=== PATIENT | male | born 1970 | race Caucasian/White ===

== ENCOUNTER 2019-04-19 14:02 | Emergency (ER) | payer OTHER ==
--- NOTE | 2019-04-19 15:27 | ER Document Report ---
ED Medical Screen (RME) - General Chief Complaint: Fall Injury Stated Complaint: BACK PAIN Time Seen by Provider: 04/19/19 14:48 Mode of Arrival: Wheelchair Information source: Patient Notes: 49-year-old male presented to ED for complaint of right back and flank pain after he was getting out of his big truck when his shorts caught on a hook throwing him onto the ground landing on his buttocks and right back. He now has tenderness to palpation to the right mid to lower back and flank. Patient states he felt like he might have had a bowel movement earlier on himself but is not sure because he has not been to the bathroom since then. He states it is very painful and it is hard to walk due to the pain. He states he has a history of a gallbladder removal and bilateral inguinal hernias. He does not smoke drink or do any drugs. He is alert oriented respirations regular and unlabored speaking in full sentences. I have greeted and performed a rapid initial assessment of this patient. A comprehensive ED assessment and evaluation of the patient, analysis of test results and completion of medical decision making process will be conducted by an additional ED providers. Dictation of this chart was performed using voice recognition software; therefore, there may be some unintended grammatical errors. TRAVEL OUTSIDE OF THE [place] IN LAST 30 DAYS: No - Related Data Allergies/Adverse Reactions: No Known Allergies Allergy (Unverified 04/19/19 14:03) Past Medical History Renal/ Medical History: Denies: Hx Peritoneal Dialysis Past Surgical History: Reports: Hx Cholecystectomy Physical Exam - Vital signs Vitals: Temp Pulse Resp BP Pulse Ox 97.9 F 82 16 111/71 96 04/19/19 14:56 04/19/19 14:56 04/19/19 14:56 04/19/19 14:56 04/19/19 14:56 Course - Vital Signs Vital signs: Temp Pulse Resp BP Pulse Ox 97.9 F 82 16 111/71 96 04/19/19 14:56 04/19/19 14:56 04/19/19 14:56 04/19/19 14:56 04/19/19 14:56
[2019-04-19 15:55] LABS: ABSOLUTE EOSINOPHILS # (AUTO) 0.1 10^3/uL (0.0-0.6); ABSOLUTE LYMPHOCYTES (AUTO) 0.6 10^3/uL (0.5-4.7); ABSOLUTE MONOCYTES (AUTO) 0.3 10^3/uL (0.1-1.4); ABSOLUTE NEUT (AUTO) 4.4 10^3/uL (1.7-8.2); BASOPHILS % (AUTO) 0.7 % (0-2); EOSINOPHILS % (AUTO) 1.3 % (0-6); HEMATOCRIT 38.9 % (37.9-51.0); HEMOGLOBIN 13.3 g/dL (13.5-17.0); LYMPHOCYTES % (AUTO) 11.8 % (13-45); MEAN CORPUSCULAR HEMOGLOBIN 28.7 pg (27.0-33.4); MEAN CORPUSCULAR HGB CONC 34.2 g/dL (32.0-36.0); MEAN CORPUSCULAR VOLUME 84 fl (80-97); PLATELET COUNT 270 10^3/uL (150-450); RED BLOOD COUNT 4.64 10^6/uL (4.35-5.55); RED CELL DISTRIBUTION WIDTH 13.7 % (11.5-14.0); SEGMENTED NEUTROPHILS % (AUTO) 80.2 % (42-78); TOTAL CELLS COUNTED % (AUTO) 100 %; WHITE BLOOD COUNT 5.5 10^3/uL (4.0-10.5)
[2019-04-19 16:13] LABS: ALANINE AMINOTRANSFERASE 40 U/L (21-72); ALBUMIN 4.3 g/dL (3.5-5.0); ALKALINE PHOSPHATASE 57 U/L (38-126); ANION GAP 8 (5-19); ASPARTATE AMINO TRANSFERASE 41 U/L (17-59); BILIRUBIN,DIRECT 0.2 mg/dL (0.0-0.4); BILIRUBIN,TOTAL 0.4 mg/dL (0.2-1.3); BLOOD UREA NITROGEN 15 mg/dL (7-20); CALCIUM 9.5 mg/dL (8.4-10.2); CARBON DIOXIDE 30 mmol/L (22-30); CHLORIDE 102 mmol/L (98-107); GLUCOSE 164 mg/dL (75-110); POTASSIUM 3.3 mmol/L (3.6-5.0); TOTAL PROTEIN 6.9 g/dL (6.3-8.2)
--- NOTE | 2019-04-19 16:34 | RADIOLOGY REPORT (SQ) ---
EXAM DESCRIPTION: CT ABD/PELVIS NO ORAL OR IV COMPLETED DATE/TIME: 04/19/2019 4:14 pm REASON FOR STUDY: right flank and low back pain after fall out of tr COMPARISON: None. TECHNIQUE: CT scan of the abdomen and pelvis performed without intravenous or oral contrast. Images reviewed with lung, soft tissue, and bone windows. Reconstructed coronal and sagittal MPR images revi ewed. All images stored on PACS. All CT scanners at this facility use dose modulation, iterative reconstruction, and/or weight based d osing when appropriate to reduce radiation dose to as low as reasonably achievable (ALARA). [facility]: Dose Right [facility]: CareDose [facility]: Dose Right [facility]: Teradose 4D [facility]: Smart Div[employer] RADIATION DOSE: CT Rad equipment meets quality standard of care and radiation dose reduction techniq ues were employed. CTDIvol: 5.1 mGy. DLP: 278 mGy-cm.mGy. LIMITATIONS: None. FINDINGS: LOWER CHEST: No significant findings. No nodules or infiltrates. NON-CONTRASTED LIVER, SPLEEN, ADRENALS: Evaluation limited by lack of IV contrast. No identified sign ificant masses. PANCREAS: No masses. No peripancreatic inflammatory changes. GALLBLADDER: Surgically absent. RIGHT KIDNEY AND URETER: Small upper pole cyst identified. No solid masses. No calcified stones. No h ydronephrosis or hydroureter. LEFT KIDNEY AND URETER: No cysts identified. No solid masses. Small lower pole calcified stones. No hydronephrosis or hydroureter. AORTA AND RETROPERITONEUM: No aneurysm. No retroperitoneal masses or adenopathy. BOWEL AND PERITONEAL CAVITY: No obvious masses or inflammatory changes. No free fluid. APPENDIX: Normal. PELVIS, BLADDER, AND ABDOMINAL WALL:No abnormal masses. No free fluid. Unremarkable bladder. BONES: Mild anterior compression fracture of the T11 vertebral body. Moderate degenerative disc dise ase at the L5-S1 level. There are bridging osteophytes at the SI joints. OTHER: No other significant finding. IMPRESSION: Mild anterior compression fracture of the T11 vertebral body. No other acute findings. TECHNICAL DOCUMENTATION: JOB ID: [id number] [place]-[id number] Quality ID # [id number]: Final reports with documentation of one or more dose reduction techniques (e.g., Au tomated exposure control, adjustment of the mA and/or kV according to patient size, use of iterative reconstruction technique) 2010 [employer]- All Rights Reserved Reading location - IP/workstation name: [facility] [employer]
[2019-04-19 18:16] LABS: APPEARANCE,URINE SLIGHTLY-CLOUDY; BILIRUBIN,URINE NEGATIVE (NEGATIVE); COLOR,URINE AMBER; GLUCOSE, URINE >=500 mg/dL (NEGATIVE); KETONES,URINE NEGATIVE (NEGATIVE); LEUKOCYTE ESTERASE,URINE NEGATIVE (NEGATIVE); NITRITE,URINE NEGATIVE (NEGATIVE); PROTEIN,URINE 30 mg/dL (NEGATIVE); URINE SPECIFIC GRAVITY 1.023
[2019-04-19] MEDS ORDERED: OXYCODONE-ACETAMINOPHEN 5-325 MG TABLET PO ONE (18:23)
[2019-04-19] MEDS ORDERED: CYCLOBENZAPRINE HCL 10 MG TABLET PO ONE (18:23)
[2019-04-19] MEDS ORDERED: ONDANSETRON 4 MG TAB.RAPDIS PO ONE (18:33)
--- NOTE | 2019-04-19 18:52 | RADIOLOGY REPORT (SQ) ---
EXAM DESCRIPTION: HAND LEFT 3 VIEWS COMPLETED DATE/TIME: 04/19/2019 6:43 pm REASON FOR STUDY: hand pain and bruising COMPARISON: None. EXAM PARAMETERS: NUMBER OF VIEWS: Three views. TECHNIQUE: AP, lateral and oblique radiographic images acquired of the left hand. LIMITATIONS: None. FINDINGS: MINERALIZATION: Normal. BONES: No acute fracture or dislocation. No worrisome bone lesions. JOINTS: No effusions. SOFT TISSUES: No soft tissue swelling. No foreign body. OTHER: No other significant finding. IMPRESSION: NEGATIVE STUDY OF THE LEFT HAND. NO RADIOGRAPHIC EVIDENCE OF ACUTE INJURY. TECHNICAL DOCUMENTATION: JOB ID: [id number] [employer]- All Rights Reserved Reading location - IP/workstation name: [email or web address]
[2019-04-19] MEDS ORDERED: KETOROLAC TROMETHAMINE 60 MG/2 ML SDV IM ONE (19:52)
--- NOTE | 2019-04-19 19:59 | ER Document Report ---
ED General - General Chief Complaint: Fall Injury Stated Complaint: BACK PAIN Time Seen by Provider: 04/19/19 14:48 Mode of Arrival: Wheelchair TRAVEL OUTSIDE OF THE [place] IN LAST 30 DAYS: No - HPI Notes: 49-year-old male to the emergency department with complaints of low back pain, left hand pain, headache, loss of consciousness after falling off of a loading deck. He states that a truck cut back up into the loading deck and he was trying to get down off of the loading dock and got hung up on a piece of wire that was hooked. He states that that threw him onto the ground about 5 feet where he landed directly onto his back and hit his head. He states that he had brief loss of consciousness. He states that he has pain particularly in the back ever since. Most of his pain is in the mid back. He denies any bladder incontinence, urinary retention, saddle paresthesias, radiculopathy down the leg, inability to walk, nausea, vomiting, blurry vision, hypersomnolence. - Related Data Allergies/Adverse Reactions: No Known Allergies Allergy (Unverified 04/19/19 14:03) Past Medical History - General Information source: Patient - Social History Smoking Status: Current Every Day Smoker Frequency of alcohol use: None Drug Abuse: None Family History: Reviewed & Not Pertinent Patient has suicidal ideation: No Patient has homicidal ideation: No Renal/ Medical History: Denies: Hx Peritoneal Dialysis Past Surgical History: Reports: Hx Cholecystectomy Review of Systems - Review of Systems Constitutional: denies: Chills, Fever EENT: No symptoms reported Cardiovascular: denies: Chest pain, Dyspnea, Syncope, Dizziness, Lightheaded Respiratory: denies: Cough, Short of breath Gastrointestinal: denies: Abdominal pain, Diarrhea, Nausea, Vomiting Genitourinary: denies: Dysuria, Discharge, Frequency, Flank pain, Hematuria, Incontinence Musculoskeletal: Back pain, Muscle pain Skin: No symptoms reported Hematologic/Lymphatic: No symptoms reported Neurological/Psychological: No symptoms reported -: Yes All other systems reviewed and negative Physical Exam - Vital signs Vitals: Temp Pulse Resp BP Pulse Ox 97.9 F 82 16 111/71 96 04/19/19 14:56 04/19/19 14:56 04/19/19 14:56 04/19/19 14:56 04/19/19 14:56 Interpretation: Normal - General General appearance: Alert In distress: Moderate - moderate pain distress. patient standing in the room and states that standing makes his back feel better. - HEENT Head: Normocephalic, Atraumatic Eyes: Normal Pupils: PERRL - Respiratory Respiratory status: No respiratory distress Chest status: Nontender Breath sounds: Normal Chest palpation: Normal - Cardiovascular Rhythm: Regular Heart sounds: Normal auscultation Murmur: No - Abdominal Inspection: Normal Distension: No distension Bowel sounds: Normal Tenderness: Nontender Organomegaly: No organomegaly - Back Back: Tender, Vertebra tenderness - there is TTP over the midline thoracic vertebra and the upper midline lumbar vertebra. there is no step off or deformity. there is no SLR bilaterally. there is no evidence of wound, crepitus, ecchymosis to the back - Extremities General upper extremity: Normal inspection, Nontender, Normal strength, Normal temperature General lower extremity: Normal inspection, Nontender, Normal strength, Normal temperature Hand: Tender, Ecchymosis - there is mild TTP over the left palm and thumb with noted ecchymosis. no gross deformity. patient has 5/5 hand communications professional biltaerally. no snuff box tenderness. radial pulses intact and equal. cap refill is less than 2 sec - Neurological Neuro grossly intact: Yes Cognition: Normal Orientation: AAOx4 [place] Coma Scale Eye Opening: Spontaneous [place] Coma Scale Verbal: Oriented [place] Coma Scale Motor: Obeys Commands [place] Coma Scale Total: 15 Speech: Normal Cranial nerves: Normal Cerebellar coordination: No: Gait ataxia Motor strength normal: LUE, RUE, LLE, RLE Additional motor exam normals: Equal communications professional. No: Pronator drift Sensory: Normal - Psychological Associated symptoms: Normal affect, Normal mood - Skin Skin Temperature: Warm Skin Moisture: Dry Skin Color: Normal Course - Re-evaluation Re-evalutation: Impression: Fall, T11 vertebral compression fracture, left hand contusion and back strain. Patient is feeling much better after pain meds here and can get much more comfortable. He lives in [place] and would like information for spine follow up there. Will send home with pain meds, muscle relaxants. I have urged to return to nearest ER if any urinary retention, bladder/bowel incontinence, saddle paresthesias, radiculopathy, fevers, chills, or any other concerning symptoms. I have taken patient out of work until cleared by spine. Patient agrees with the plan. Abdomen/Pelvis CT 04/19/19 15:28 IMPRESSION: Mild anterior compression fracture of the T11 vertebral body. No other acute findings. Hand X-Ray 04/19/19 18:23 IMPRESSION: NEGATIVE STUDY OF THE LEFT HAND. NO RADIOGRAPHIC EVIDENCE OF ACUTE INJURY. Laboratory 04/19/19 04/19/19 04/19/19 15:35 15:35 15:35 WBC 5.5 RBC 4.64 Hgb 13.3 L Hct 38.9 MCV 84 MCH 28.7 MCHC 34.2 RDW 13.7 Plt Count 270 Seg Neutrophils % 80.2 H Lymphocytes % 11.8 L Monocytes % 6.0 Eosinophils % 1.3 Basophils % 0.7 Absolute Neutrophils 4.4 Absolute Lymphocytes 0.6 Absolute Monocytes 0.3 Absolute Eosinophils 0.1 Absolute Basophils 0.0 Sodium 139.5 Potassium 3.3 L Chloride 102 Carbon Dioxide 30 Anion Gap 8 BUN 15 Creatinine 0.82 Est GFR ( Amer) > 60 Est GFR (Non-Af Amer) > 60 Glucose 164 H Calcium 9.5 Total Bilirubin 0.4 Direct Bilirubin 0.2 Neonat Total Bilirubin Not Reportable Neonat Direct Bilirubin Not Reportable Neonat Indirect Bili Not Reportable AST 41 ALT 40 Alkaline Phosphatase 57 Total Protein 6.9 Albumin 4.3 Urine Color ESTER Urine Appearance SLIGHTLY-CLOUDY Urine pH 5.0 Ur Specific [place] 1.023 Urine Protein 30 H Urine Glucose (UA) >=500 H Urine Ketones NEGATIVE Urine Blood NEGATIVE Urine Nitrite NEGATIVE Urine Bilirubin NEGATIVE Urine Urobilinogen 2.0 H Ur Leukocyte Esterase NEGATIVE Urine WBC (Auto) 6 Urine RBC (Auto) 3 Urine Bacteria (Auto) TRACE Urine Mucus (Auto) OCC Urine Ascorbic Acid NEGATIVE - Vital Signs Vital signs: Temp Pulse Resp BP Pulse Ox 97.2 F 67 16 109/72 97 04/19/19 20:01 04/19/19 20:01 04/19/19 14:56 04/19/19 20:01 04/19/19 20:01 - Laboratory Result Diagrams: 04/19/19 15:35 04/19/19 15:35 Laboratory results interpreted by me: 04/19/19 04/19/19 04/19/19 15:35 15:35 15:35 Hgb 13.3 L Seg Neutrophils % 80.2 H Lymphocytes % 11.8 L Potassium 3.3 L Glucose 164 H Urine Protein 30 H Urine Glucose (UA) >=500 H Urine Urobilinogen 2.0 H - Diagnostic Test Radiology reviewed: Image reviewed, Reports reviewed Discharge - Discharge Clinical Impression: Strain of thoracic back region Fall Qualifiers: Encounter type: initial encounter Qualified Code(s): W19.XXXA - Unspecified fall, initial encounter Compression fracture of T11 vertebra Qualifiers: Encounter type: initial encounter Qualified Code(s): S22.080A - Wedge compression fracture of T11-T12 vertebra, initial encounter for closed fracture Contusion of left hand Qualifiers: Encounter type: initial encounter Qualified Code(s): S60.222A - Contusion of left hand, initial encounter Condition: Stable Disposition: HOME, SELF-CARE Instructions: Compression Fracture of the Spine ([facility]), Contusion ([facility]) Additional Instructions: APPLY ICE THREE TIMES A DAY FOR 20 MINUTES AT A TIME. TAKE PAIN MEDICINE AND MUSCLE RELAXANTS. NO LIFTING GREATER THAN 10 LBS UNTIL CLEARED BY [facility]. FOLLOW UP WITH [facility] IN [place] LISTED BELOW -- CALL TOMORROW FOR APPOINTMENT. RETURN IF ANY WORSENING SYMPTOMS. PUSH FLUIDS. [facility] [phone] [place] [address] Prescriptions: Cyclobenzaprine HCl [Flexeril 10 mg Tablet] 10 mg PO TID #21 tablet Ibuprofen [Motrin 800 mg Tablet] 800 mg PO Q8H PRN #30 tab PRN Reason: Oxycodone HCl/Acetaminophen [Percocet 5-325 mg Tablet] 1 - 2 tab PO Q4H PRN #15 tablet PRN Reason: Forms: Return to Work
[2019-04-19 20:02] VITALS: BP 109/72
== END 2019-04-19 20:18 | disposition home or self-care (01) ==
LOC: ER 14:02
DX: S22.080A Wedge compression fracture of T11-T12 vertebra, initial encounter for closed fracture (principal); S60.222A Contusion of left hand, initial encounter; R51 Headache; R55 Syncope and collapse; W17.89XA Other fall from one level to another, initial encounter; Y93.89 Activity, other specified; F17.200 Nicotine dependence, unspecified, uncomplicated
CPT/HCPCS: 99284; 96372; 36415; 85025; 80053; 81001; 73130; 74176; J1885; S0119

== ENCOUNTER 2019-04-23 13:23 | Emergency (ER) | payer OTHER ==
[2019-04-23] MEDS ORDERED: LIDOCAINE 5% (700 MG) TRANSDERMAL ADH..PATCH TP ONE (15:43)
--- NOTE | 2019-04-23 15:49 | ER Document Report ---
ED Neck/Back Problem - General Chief Complaint: Back Pain Stated Complaint: BACK PAIN Time Seen by Provider: 04/23/19 15:26 Mode of Arrival: Ambulatory Information source: Patient Notes: 49-year-old male presented to ED for continued pain in T11. He was seen here on April 21 after a fall where he had a T11 compression fracture. He states they gave him some pain medicine some muscle relaxers and some ibuprofen and discharged him home to follow-up with orthopedic he went to the orthopedic as was instructed and they do not take Worker's Comp. She he states he has been working with his Worker's Comp. people and the doctors and he supposed to have a appointment on Wednesday. He states he only has a couple of the Percocets left and we may need some before he can follow-up with the doctor. Patient is alert oriented respirations regular and unlabored speaking in full sentences walks with a even steady gait. I did discuss with him the fact that his sugar was elevated on his last visit as well as 500+ sugar in his urine. He states he is not a diabetic but he did have a fruit drink and a honey bun before coming to the emergency room. I told him with the levels in his blood that he does need to follow-up with his primary care doctor and make sure this is staying down. Today his Accu-Chek was 89. TRAVEL OUTSIDE OF THE [place] IN LAST 30 DAYS: No - HPI Patient complains to provider of: Pain, Injury, Upper back - Right upper back pain Onset: Last week Where: Work - Fell off of the loading deck of his truck hitting his back and his head Onset: Gradual Timing: Still present - States the pain mostly is to the right back there is a lot less pain to the vertebral area now Severity: Severe Pain Level: 5 - Mostly to the right back Context: Lifting, Turning Recent injury: Yes Associated symptoms: Upper back pain. 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 Lives with: Family Family History: Arthritis, DM Patient has suicidal ideation: No Patient has homicidal ideation: No - Past Medical History Cardiac Medical History: Reports: None Pulmonary Medical History: Reports: None EENT Medical History: Reports: None Neurological Medical History: Reports: None Endocrine Medical History: Reports: None Renal/ Medical History: Reports: None Malignancy Medical History: Reports None GI Medical History: Reports: None Musculoskeletal Medical History: Reports Hx Musculoskeletal Trauma Skin Medical History: Reports None Psychiatric Medical History: Reports: None Traumatic Medical History: Reports: Hx Spine Fracture - T11 compression fracture Infectious Medical History: Reports: None Past Surgical History: Reports: Hx Cholecystectomy - 2014 Review of Systems - Review of Systems Constitutional: No symptoms reported EENT: No symptoms reported Cardiovascular: No symptoms reported Respiratory: No symptoms reported Gastrointestinal: No symptoms reported Genitourinary: No symptoms reported Male Genitourinary: No symptoms reported Musculoskeletal: No symptoms reported Skin: No symptoms reported Hematologic/Lymphatic: No symptoms reported Neurological/Psychological: No symptoms reported -: Yes All other systems reviewed and negative Physical Exam - Vital signs Vitals: Temp Pulse Resp BP Pulse Ox 98.1 F 105 H 18 107/66 97 04/23/19 13:53 04/23/19 13:53 04/23/19 13:53 04/23/19 13:53 04/23/19 13:53 Interpretation: Normal - General General appearance: Appears well, Alert - HEENT Head: Normocephalic, Atraumatic Eyes: Normal Pupils: PERRL - Respiratory Respiratory status: No respiratory distress Chest status: Nontender Breath sounds: Normal Chest palpation: Normal - Cardiovascular Rhythm: Regular Heart sounds: Normal auscultation Murmur: No - Abdominal Inspection: Normal Distension: No distension Bowel sounds: Normal Tenderness: Nontender Organomegaly: No organomegaly - Back Back: Normal, Tender - Right upper back. No: Vertebra tenderness Notes: Patient states the area of the fracture does not hurt now it mostly hurts on the right upper back. He states is a little twinge to T11 area. I have discussed his previous labs and CT results with him I have given him a copy of the previous CT results and labs to take with his follow-up appointment to the doct or his Workmen's Comp. is setting up with him I have also given him a CD of the CT from his last visit for follow-up. A Lidoderm patch was applied to the area that he states hurts. - Extremities General upper extremity: Normal inspection, Nontender, Normal color, Normal ROM, Normal temperature General lower extremity: Normal inspection, Nontender, Normal color, Normal ROM, Normal temperature, Normal weight bearing. No: Gavino's sign - Neurological Neuro grossly intact: Yes Cognition: Normal Orientation: AAOx4 [place] Coma Scale Eye Opening: Spontaneous [place] Coma Scale Verbal: Oriented [place] Coma Scale Motor: Obeys Commands [place] Coma Scale Total: 15 Speech: Normal Motor strength normal: LUE, RUE, LLE, RLE Sensory: Normal - Psychological Associated symptoms: Normal affect, Normal mood - Skin Skin Temperature: Warm Skin Moisture: Dry Skin Color: Normal Course - Re-evaluation Re-evalutation: 04/23/19 15:56 Patient states the area of the fracture does not hurt now it mostly hurts on the right upper back. He states is a little twinge to T11 area. I have discussed his previous labs and CT results with him I have given him a copy of the previous CT results and labs to take with his follow-up appointment to the doctor his Workmen's Comp. is setting up with him I have also given him a CD of the CT from his last visit for follow-up. A Lidoderm patch was applied to the area that he states hurts. Patient was discharged home with a prescription for 4 more Percocet - Vital Signs Vital signs: Temp Pulse Resp BP Pulse Ox 98.4 F 100 18 102/74 100 04/23/19 16:04 04/23/19 16:04 04/23/19 13:53 04/23/19 16:04 04/23/19 16:04 Discharge - Discharge Clinical Impression: Compression fracture of T11 vertebra Qualifiers: Encounter type: subsequent encounter Fracture healing: with routine healing Qualified Code(s): S22.080D - Wedge compression fracture of T11-T12 vertebra, subsequent encounter for fracture with routine healing Condition: Stable Disposition: HOME, SELF-CARE Additional Instructions: You were seen today for continued pain to your right upper back. I have given you a copy of your lab results your CT results and a CD of your CT for follow-up with your Worker's Comp. orthopedic cast specialist. You also need to follow-up with your primary care due to the elevated sugar and glucose in your urine on your last visit. Today your Accu-Chek was 89. You state that you have eaten a honey bun and drinking very sweet drink last time but this needs to be monitored. Please be sure to keep your appointment with the orthopedic cast specialist for your compression fracture of T11. Return to the ED for any complications or any problems following up with your orthopedic cast specialist. I have given you a prescription for Lidoderm patches if this patch helps your pain Prescriptions: Oxycodone HCl/Acetaminophen [Percocet 5-325 mg Tablet] 1 tab PO Q6HP PRN #4 tab PRN Reason: Lidocaine [Lidoderm 5% (700 mg) Transdermal Patch] 1 patch TP DAILY #30 adh..patch
[2019-04-23 16:10] VITALS: BP 102/74
== END 2019-04-23 16:11 | disposition home or self-care (01) ==
LOC: ER 13:23
DX: S22.080D Wedge compression fracture of T11-T12 vertebra, subsequent encounter for fracture with routine healing (principal); M54.6 Pain in thoracic spine; M54.9 Dorsalgia, unspecified; X58.XXXD Exposure to other specified factors, subsequent encounter; Z79.899 Other long term (current) drug therapy
CPT/HCPCS: 82962; 99284